=== PATIENT | female | born 2005 | race Caucasian/White ===

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

== ENCOUNTER 2025-05-13 19:11 | Emergency (ER) | payer SELFPAY ==
[~2025-05-13] VITALS: Ht 157.5 cm; Wt 89.8 kg
[2025-05-13 19:37] VITALS: O2SAT 100
[2025-05-13 21:18] LABS: BASOPHILS % 0.4 % (0.0-2.0); EOSINOPHILS % 0.1 % (0.0-5.0); HEMATOCRIT. 43.4 % (36.0-48.0); HEMOGLOBIN. 14.4 g/dL (12.0-16.0); LYMPHOCYTES % 18.7 % (20.0-50.0); MEAN PLATELET VOLUME 8.1 fl (7.4-10.4); MONOCYTES % 5.1 % (2.0-8.0); NEUTROPHILS % 75.7 % (40.0-76.0); PLATELET 299 x1000/uL (130-400); RED BLOOD CELL COUNT 4.76 mill/uL (4.2-5.4); RED CELL DISTRIBUTION WIDTH 12.5 % (11.6-14.6)
[2025-05-13 21:26] LABS: HCG SCREEN NEGATIVE
[2025-05-13 21:30] LABS: CREATININE 1.0 mg/dL (0.6-1.0)
[2025-05-13 21:31] LABS: UREA NITROGEN BLOOD 15 mg/dL (9-23)
[2025-05-13 21:32] LABS: ASPARTATE AMINOTRANSFERASE 22 IU/L (<34); BILIRUBIN DIRECT 0.2 mg/dL (<=3.0)
[2025-05-13 21:33] LABS: BILIRUBIN TOTAL 0.8 mg/dL (0.1-1.0); PHOSPHORUS 3.1 mg/dL (2.5-4.9); PROTEIN TOTAL 8.5 g/dL (6.0-8.3)
[2025-05-13] MEDS: ONDANSETRON 4MG ODT PO ONE (22:26)
[2025-05-13] MEDS: ACETAMINOPHEN 325MG TABLET PO ONE (22:26)
[2025-05-13] MEDS: KETOROLAC 30MG/ML VIAL IM ONE (22:26)
[2025-05-13 22:32] LABS: CLARITY URINE CLEAR (CLEAR); COLOR URINE YELLOW (YELLOW); GLUCOSE URINE NEGATIVE (NEGATIVE); KETONES URINE 4+ (NEGATIVE); LEUKOCYTE ESTERASE URINE NEGATIVE (NEGATIVE); NITRITE URINE NEGATIVE (NEGATIVE); OCCULT BLOOD URINE NEGATIVE (NEGATIVE); PH URINE 5.5 (4.5-8.0); PROTEIN URINE TRACE (NEGATIVE); SPECIFIC GRAVITY URINE 1.026 (1.005-1.030); UROBILINOGEN URINE 1.0 E.U./dL (0.2-1.0)
[2025-05-13 22:40] LABS: *AMPHETAMINES SCREEN URINE NEGATIVE (NEGATIVE); *BARBITURATES SCREEN URINE NEGATIVE (NEGATIVE); *BENZODIAZEPINES SCREEN URINE NEGATIVE (NEGATIVE); *COCAINE SCREEN URINE NEGATIVE (NEGATIVE); CANNABINOID URINE SCREEN NEGATIVE (NEGATIVE); ECSTASY MDMA SCREEN URINE NEGATIVE (NEGATIVE); METHADONE URINE SCREEN NEGATIVE (NEGATIVE); OPIATES URINE SCREEN NEGATIVE (NEGATIVE); PHENCYCLIDINE URINE SCREEN NEGATIVE (NEGATIVE)
[2025-05-13 22:48] LABS: BACTERIA URINE 2+; RBC URINE 0-2 /hpf (0-2); SQUAMOUS EPITHELIAL CELL URINE FEW /lpf (RARE/1+); WBC URINE 0-2 /hpf (0-2)
[2025-05-13] MEDS ORDERED: TOPUD PO (22:58)
[2025-05-13] MEDS ORDERED: IBUP-2028 MT (22:58)
[2025-05-13 23:19] VITALS: BP 130/70; PULSE 107; RESP 18; TEMP 37; O2SAT 100
== END 2025-05-13 23:23 | disposition home or self-care (01) ==
LOC: ER 19:11
DX: G43.909 Migraine, unspecified, not intractable, without status migrainosus (principal); Z79.899 Other long term (current) drug therapy
CPT/HCPCS: 99285; 70450; 80076; 80305; 80048; 81003; 84703; 83690; 83735; 84100; 85025; 36415; 96372; J1885; Q0162